=== PATIENT | male | born 1985 | race Caucasian/White ===

== ENCOUNTER 2016-05-06 15:43 | Emergency (ER) | payer OTHER ==
[2016-05-06 16:23] LABS: Bilirubin Negative (Negative); Blood, Urine Trace (Negative); Glucose, Urine (Dipstick) Negative (Negative); Ketone, Urine Negative (Negative); Nitrite Negative (Negative); Protein, Urine (Dipstick) Negative (Neg-Trace); Urobilinogen 0.2 mg/dL (0.2-1.0)
[2016-05-06 16:30] LABS: #Basophils 0.1 thou/uL (0.0-0.2); #Eosinphils 0.1 thou/uL (0.0-0.7); #Lymphocytes 1.7 thou/uL (1.20-3.40); #Monocytes 0.9 thou/uL (0.11-0.59); #Neutrophils 9.5 thou/uL (1.40-6.50); %Eosinophils 1.2 % (0.0-10.0); %Monocytes 6.9 % (0.0-10.0); Hematocrit 44.2 % (42.0-52.0); Mean Platelet Volume 8.9 fL (7.4-10.4); White Blood Cell (WBC) Count 12.3 thou/uL (4.8-10.8)
[2016-05-06 16:33] LABS: Methadone Not Detected (NotDetected); Methamphetamine Not Detected (NotDetected)
[2016-05-06 16:37] LABS: Bacteria/HPF 1+ HPF (None Seen); Hyaline Casts/LPF NONE SEEN LPF (0-3 Hyaline); Oval Fat Bodies/HPF None Seen HPF (None Seen); RBC/HPF 0-3 HPF (0-3); Renal Epithelial None Seen HPF (0-3); Sperm/HPF None Seen HPF (None Seen); Squamous Epithelial None Seen HPF (0-3); Transitional Epithelial NONE SEEN HPF (0-3); Trichomonas/HPF None Seen HPF (None Seen); Yeast-All Forms None Seen HPF (None Seen)
[2016-05-06 16:38] LABS: ALT (SGPT) 13 U/L (0-55); AST (SGOT) 13 U/L (5-34); Alkaline Phosphatase 60 U/L (40-150); Anion Gap 15 mmol/L (10-20); BUN (Urea Nitrogen) 21 mg/dL (8.9-20.6); Bilirubin, Total 0.3 mg/dL (0.2-1.2); Calc. Creatinine Clearance 0 mL/min (70-130); Calcium 9.3 mg/dL (7.8-10.44); Carbon Dioxide 25 mmol/L (22-29); Chloride 106 mmol/L (98-107); Estimated GFR-MDRD 33; Globulin 3.6 g/dL (2.4-3.5); Protein, Total 7.6 g/dL (6.0-8.3)
[2016-05-06] MEDS ORDERED: Cephalexin 250 MG CAP ONE (16:56)
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
== END 2016-05-06 17:08 | disposition home or self-care (01) ==
LOC: BURERS 15:43
DX: E11.65 Type 2 diabetes mellitus with hyperglycemia (principal); J44.9 Chronic obstructive pulmonary disease, unspecified; F41.9 Anxiety disorder, unspecified; F17.210 Nicotine dependence, cigarettes, uncomplicated
CPT/HCPCS: 51702; 80053; 80306; 81003; 81015; 85025; 87077; 87086; 94760